=== PATIENT | female | born 1960 | race American Indian/Alaskan Native ===

== ENCOUNTER 2019-04-01 12:31 | Emergency (ER) | payer BC, OTHER ==
[2019-04-01 12:48] VITALS: BP 139/77; PULSE 70
--- NOTE | 2019-04-01 14:01 | EDM.PDOC ---
ED HPI GENERAL MEDICAL PROBLEM - General Chief Complaint: Lower Extremity Injury/Pain Stated Complaint: FOOT PAIN Time Seen by Provider: 04/01/19 13:36 Source of Information: Reports: Patient, RN History Limitations: Reports: No Limitations - History of Present Illness INITIAL COMMENTS - FREE TEXT/NARRATIVE: Patient reports being diagnosed with plantar fasciitis about two months ago and referred to podiatry. She was given a steriod injection in the clinic one month ago. She reports seeing podiatry two days ago and was send to the store for odontitis. She reports picking up a pair of shoes that makes her plantar fasciitis worst. She states she is in so much pain and is wondering iif there is anything that can be done for her. She has tried Aleve with little relief. She denies any right foot injury of trauma. Right Foot Pain Score (Numeric/FACES): 6 - Related Data Allergies Allergy/AdvReac Type Severity Reaction Status Date / Time No Known Allergies Allergy Verified 04/01/19 12:42 Home Meds: Home Meds Cetirizine HCl/Pseudoephedrine [Zyrtec-D Tablet] 1 each PO DAILY 02/28/13 [ History] Hydrochlorothiazide 25 mg PO DAILY 02/28/13 [History] Zolpidem Tartrate [Zolpidem Tartrate ER] 10 mg PO QPM 02/28/13 [History] Albuterol [Proventil HFA] 2 puff INH Q6HR PRN 02/22/16 [History] Fluticasone/Vilanterol [Breo Ellipta 200-25 MCG Inhalation Kit] 1 puff IH DAILY 04/01/19 [History] Levothyroxine Sodium [Synthroid] 25 mcg PO DAILY 04/01/19 [History] Omalizumab [Xolair] 75 mg SQ ASDIRECTED 04/01/19 [History] Umeclidinium [place] [Incruse Ellipta*] 1 puff IH DAILY 04/01/19 [History] Past Medical History - Past Health History Medical/Surgical History: Denies Medical/Surgical History HEENT History: Reports: Impaired Vision, Otitis Media Cardiovascular History: Reports: Hypertension Respiratory History: Reports: Asthma Gastrointestinal History: Reports: None Genitourinary History: Reports: None 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: Musculoskeletal History: Reports: None Neurological History: Reports: None Psychiatric History: Reports: None Endocrine/Metabolic History: Reports: Hypothyroidism, Obesity/BMI 30+ Hematologic History: Reports: None Immunologic History: Reports: None Oncologic (Cancer) History: Reports: None Dermatologic History: Reports: None - Infectious Disease History Infectious Disease History: Reports: None - Past Surgical History Head Surgeries/Procedures: Reports: None HEENT Surgical History: Reports: Myringotomy w Tube(s) Social & Family History - Family History Family Medical History: Noncontributory - Tobacco Use Smoking Status *Q: Never Smoker Second Hand Smoke Exposure: No - Caffeine Use Caffeine Use: Reports: Coffee - Recreational Drug Use Recreational Drug Use: No - Living Situation & Occupation Living situation: Reports: with Family Occupation: Employed Review of Systems - Review of Systems Review Of Systems: Comprehensive ROS is negative, except as noted in HPI. ED EXAM, GENERAL - Physical Exam Exam: See Below Exam Limited By: No Limitations General Appearance: Alert, Moderate Distress Extremities: Normal Inspection, Normal Range of Motion, Normal Capillary Refill , Other (mild tenderness noted with dorsiflexion of the right foot and plapation of the fascia.) Neurological: Alert, Oriented, Normal Gait, No Motor/Sensory Deficits Psychiatric: Anxious Skin Exam: Warm, Intact, Normal Color Lymphatic: No Adenopathy Course - Vital Signs Last Recorded V/S: Last Vital Signs Temp 98.3 F 04/01/19 12:46 Pulse 70 04/01/19 12:46 Resp 20 04/01/19 12:46 BP 139/77 04/01/19 12:46 Pulse Ox 97 04/01/19 12:46 - Re-Assessments/Exams Free Text/Narrative Re-Assessment/Exam: reviewed findings with patient with information about home management of plantar fascitis . Encouraged her to follow up with podiatry or PCP for a PT referral. Patient verbalized understanding. Departure - Departure Time of Disposition: 13:55 Disposition: Home, Self-Care 01 Condition: Fair Clinical Impression: Plantar fasciitis of right foot - Discharge Information Instructions: Plantar Fasciitis Rehab[facility] Forms: ED Department Discharge Additional Instructions: Instruction included in the AVS. Follow up with podiatry get a referral for PT Sepsis Event Note - Evaluation Sepsis Screening Result: No Definite Risk - Focused Exam Vital Signs: Vital Signs Temp Pulse Resp BP Pulse Ox 04/01/19 12:46 98.3 F 70 20 139/77 97 Date Exam was Performed: 04/01/19 Time Exam was Performed: 15:54
== END 2019-04-01 14:12 | disposition home or self-care (01) ==
LOC: DL.ED 12:31
DX: M72.2 Plantar fascial fibromatosis (principal); I10 Essential (primary) hypertension; J45.909 Unspecified asthma, uncomplicated; E03.9 Hypothyroidism, unspecified; E66.9 Obesity, unspecified; Z68.35 Body mass index [BMI] 35.0-35.9, adult; Z79.899 Other long term (current) drug therapy
CPT/HCPCS: 99282

== ENCOUNTER 2024-05-30 11:50 | Emergency (ER) | payer BC, OTHER ==
[2024-05-30] MEDS: Magnesium Sulf/Wat 2 GM/50 mL 2 GM in Premix Bag 1 BAG IV ONE (12:15)
[2024-05-30 12:44] LABS: B-TYPE NATRIURETIC PEPTIDE,BNP 6 pg/ml (0-100)
[2024-05-30 13:02] VITALS: BP 151/76; PULSE 91
[2024-05-30 13:32] LABS: BASOPHILS PERCENT AUTO 0.3 % (0.0-1.0); HEMATOCRIT 39.9 % (37.0-47.0); HEMOGLOBIN 12.8 g/dL (12.0-16.0); LYMPHOCYTES PERCENT AUTO 9.9 % (20.5-50.1); MEAN CORPUSCULAR HEMOGLOBIN 26.8 pg (27.0-34.0); MEAN CORPUSCULAR HGB CONC 32.1 g/dL (33.0-35.0); MEAN CORPUSCULAR VOLUME 83.5 fL (80-100); NEUTROPHILS PERCENT AUTO 78.8 % (42.2-75.2); PLATELET COUNT,PLT 317 10^3/uL (150-450); RED BLOOD CELL COUNT 4.78 10^6/uL (4.2-5.4); WHITE BLOOD CELL COUNT,WBC 14.5 10^3/uL (5.0-10.0)
[2024-05-30 13:42] LABS: ALBUMIN 3.3 g/dL (3.4-5.0); BUN/CREATININE RATIO 23.5 (No establ ref range); CREATININE 0.85 mg/dL (0.55-1.02); EST CRCL DRUG DOSING (CG) 68.34 mL/min; MAGNESIUM 1.7 mg/dL (1.8-2.4); PROTEIN TOTAL,TP 7.4 g/dL (6.4-8.2)
[2024-05-30 13:53] LABS: A/G RATIO 0.8; ANION GAP 14.2 mEq/L (7-13); INR 0.9 (0.9-1.2); POTASSIUM,K 4.2 mmol/L (3.5-5.1); PROTHROMBIN TIME 9.7 SEC (9.0-12.0)
[2024-05-30] MEDS: Iopamidol 755 Mg/ML 100 ML Bottle IVPUSH ONE (14:14)
== END 2024-05-30 14:54 | disposition home or self-care (01) ==
LOC: DL.ED 11:50
DX: J18.9 Pneumonia, unspecified organism (principal); I10 Essential (primary) hypertension; J45.909 Unspecified asthma, uncomplicated; E03.9 Hypothyroidism, unspecified; Z79.899 Other long term (current) drug therapy; Z79.51 Long term (current) use of inhaled steroids; Z79.890 Hormone replacement therapy
CPT/HCPCS: 36415; 71275; 80053; 83735; 83880; 84484; 85025; 85610; 96374; 99285; J3475; Q9967; 93010; 99284